=== PATIENT | male | born 1980 | race Caucasian/White ===

== ENCOUNTER 2023-08-27 22:36 | Emergency (ER) | payer MEDICARE, OTHER ==
[~2023-08-27] VITALS: Ht 175.3 cm; Wt 82.7 kg
[~2023-08-27 22:36] MED LIST: MONT-35 PO; QUET100T34 PO; QUET200T PO
[2023-08-27 22:43] VITALS: TEMP 98.2
[2023-08-27] MEDS ORDERED: IBUP-1492 PO (23:47)
[2023-08-27] MEDS ORDERED: SULF-261 PO (23:47)
[2023-08-27] MEDS ORDERED: CEPH-558 PO (23:47)
[2023-08-27] MEDS: CefTRIAXone SODIUM 1 GM/VIAL IM ONE (23:50)
[2023-08-27] MEDS: LIDOCAINE/PF 1% 2 ML VIAL IM ONE (23:51)
[2023-08-27] MEDS: SULFAMETHOX/TRIMETH DS 800-160 MG/TABLET PO ONE (23:51)
[2023-08-27] MEDS: BACITRACIN 0.9 GM PACKET OINTMENT TP ONE (23:51)
[2023-08-27] MEDS: IBUPROFEN 600 MG TABLET PO ONE (23:53)
[2023-08-28 00:30] VITALS: BP 132/79; PULSE 93; RESP 16
== END 2023-08-28 01:58 | disposition home or self-care (01) ==
LOC: EMS 23:03
DX: L03.116 Cellulitis of left lower limb (principal); L03.115 Cellulitis of right lower limb; F41.9 Anxiety disorder, unspecified; F31.9 Bipolar disorder, unspecified; F20.9 Schizophrenia, unspecified; Z88.8 Allergy status to other drugs, medicaments and biological substances; X58.XXXA Exposure to other specified factors, initial encounter; Y93.89 Activity, other specified; Y92.89 Other specified places as the place of occurrence of the external cause; Y99.8 Other external cause status
CPT/HCPCS: 99284; 96372; J0696; J3490

== ENCOUNTER 2024-06-03 07:22 | Emergency (ER) | payer MEDICARE, OTHER ==
[~2024-06-03] VITALS: Ht 175.3 cm; Wt 80.9 kg
[~2024-06-03 07:22] MED LIST changes: -ACET-66 PO; -IBUP-1554 PO; -OLAN10TA74 PO
[2024-06-03 07:32] VITALS: TEMP 98.1
[2024-06-03] MEDS: LORazepam 1 MG TABLET PO ONE (09:02)
[2024-06-03] MEDS: ACETAMINOPHEN 500 MG TABLET PO ONE (09:02)
[2024-06-03] MEDS: IBUPROFEN 600 MG TABLET PO ONE (09:02)
[2024-06-03] MEDS: OLANZapine 10 MG TABLET PO ONE (09:02)
[2024-06-03] MEDS ORDERED: OLAN10TA74 PO (09:05)
[2024-06-03] MEDS ORDERED: ACET-66 PO (09:05)
[2024-06-03] MEDS ORDERED: IBUP-1554 PO (09:05)
[2024-06-03 09:15] VITALS: BP 106/59; PULSE 75; RESP 16; O2SAT 98
== END 2024-06-03 09:32 | disposition home or self-care (01) ==
LOC: EMS 07:22
DX: F25.9 Schizoaffective disorder, unspecified (principal); F15.10 Other stimulant abuse, uncomplicated; J45.909 Unspecified asthma, uncomplicated; Z79.899 Other long term (current) drug therapy
CPT/HCPCS: 99284; Z7502; Z7610

== ENCOUNTER → 2024-06-03 | Emergency (ER) | payer MEDICARE, OTHER ==
[~2024-06-03] VITALS: Ht 175.3 cm; Wt 80.9 kg
[~2024-06-03] MED LIST changes: +ACET-66 PO; +CEPH-558 PO; +IBUP-1492 PO; +IBUP-1554 PO; +OLAN10TA74 PO; +SULF-261 PO
[2024-06-03 02:20] VITALS: BP 123/73; PULSE 76; RESP 20; TEMP 98.2; O2SAT 96
[2024-06-03 03:35] LABS: BASOPHILS % (AUTO) 0.7 % (0.0-2.0); EOSINOPHILS % (AUTO) 0 % (1.0-6.0); HEMATOCRIT 37.3 % (41-53); HEMOGLOBIN 12.6 g/dL (13.5-17.5); LYMPHOCYTES # (AUTO) 2.8 K/uL (1.0-4.8); LYMPHOCYTES % (AUTO) 40.2 % (22.0-44.0); MEAN CORPUSCULAR HEMOGLOBIN 28.6 pg (26.0-34.0); MEAN CORPUSCULAR HGB CONC 33.9 G/dL (31.0-37.0); MEAN CORPUSCULAR VOLUME 85 fL (80-100); MONOCYTES # (AUTO) 0.7 K/uL (0.1-1.0); NEUTROPHILS # (AUTO) 3.5 K/uL (1.8-7.7); NEUTROPHILS % (AUTO) 49.1 % (40.0-70.0); PLATELET COUNT (AUTO) 260 K/uL (150-450); RED BLOOD CELL COUNT(AUTO) 4.41 MIL/uL (4.50-5.90); RED CELL DISTRIBUTION WIDTH 15.5 % (11.5-14.5); WHITE BLOOD COUNT (AUTO) 7.1 K/uL (4.5-11.0)
[2024-06-03 03:48] LABS: ANION GAP 2 mmol/L (8-16); CALCIUM, TOTAL 8.2 mg/dL (8.8-10.5); CARBON DIOXIDE 29 mmol/L (22-29); CHLORIDE 104 mmol/L (98-107); CREATININE 0.76 mg/dL (0.60-1.30); GLOMERULAR FILTR. RATE CALC > 60 mL/min (>60); GLUCOSE,RANDOM 93 mg/dL (70-110); POTASSIUM 3.4 mmol/L (3.5-5.1); SODIUM SERUM 135 mmol/L (136-145); UREA NITROGEN, BLOOD 13 mg/dL (7-18)
[2024-06-03 03:50] LABS: TROPONIN I-HIGH SENSITIVITY 6 ng/L (<76)
[2024-06-03 04:02] LABS: B-TYPE NATRIURETIC PEPTIDE 19 pg/mL (0-100)
[2024-06-03 09:28] LABS: ALCOHOL, BLOOD (SERUM) < 3 mg/dL (0-10)
== END | disposition left against medical advice (07) ==
LOC: EMS 02:16
DX: R06.02 Shortness of breath (principal); Z53.21 Procedure and treatment not carried out due to patient leaving prior to being seen by health care provider
CPT/HCPCS: 93005; 80048; 83880; 84484; 85025; 36415; G0480

== ENCOUNTER 2024-10-07 14:48 | Inpatient (IN) | payer MEDICARE, OTHER ==
[~2024-10-07] VITALS: Ht 175.3 cm; Wt 81.0 kg
[~2024-10-07 14:48] MED LIST changes: +ACET-66 PO; -CEPH-558 PO; -IBUP-1492 PO; +IBUP-1554 PO; +OLAN10TA74 PO; -QUET100T34 PO; -QUET200T PO; -SULF-261 PO
[2024-10-07 14:58] VITALS: O2SAT 98
[2024-10-07 16:04] LABS: BASOPHILS % (AUTO) 0.4 % (0.0-2.0); EOSINOPHILS % (AUTO) 0 % (1.0-6.0); HEMATOCRIT 42.2 % (41-53); HEMOGLOBIN 14.2 g/dL (13.5-17.5); LYMPHOCYTES # (AUTO) 2.5 K/uL (1.0-4.8); LYMPHOCYTES % (AUTO) 47.8 % (22.0-44.0); MEAN CORPUSCULAR HEMOGLOBIN 29.1 pg (26.0-34.0); MEAN CORPUSCULAR HGB CONC 33.6 G/dL (31.0-37.0); MEAN CORPUSCULAR VOLUME 87 fL (80-100); MONOCYTES # (AUTO) 0.5 K/uL (0.1-1.0); MONOCYTES % (AUTO) 8.9 % (2.0-9.0); NEUTROPHILS # (AUTO) 2.2 K/uL (1.8-7.7); NEUTROPHILS % (AUTO) 42.9 % (40.0-70.0); PLATELET COUNT (AUTO) 278 K/uL (150-450); RED BLOOD CELL COUNT(AUTO) 4.88 MIL/uL (4.50-5.90); RED CELL DISTRIBUTION WIDTH 13.2 % (11.5-14.5); WHITE BLOOD COUNT (AUTO) 5.2 K/uL (4.5-11.0)
[2024-10-07] MEDS ORDERED: ZOLPIDEM TARTRATE 10 MG TABLET PO PRN (16:15)
[2024-10-07] MEDS ORDERED: HydrOXYzine PAMOATE 50 MG CAPSULE PO PRN (16:15)
[2024-10-07] MEDS ORDERED: LOPERAMIDE HCL 2 MG CAPSULE PO PRN (16:15)
[2024-10-07] MEDS ORDERED: ACETAMINOPHEN 325 MG TABLET PO PRN (16:15)
[2024-10-07] MEDS ORDERED: OLANZapine 5 MG RAPDIS TABLET PO PRN (16:15)
[2024-10-07] MEDS ORDERED: LORazepam 2 MG TABLET PO PRN (16:15)
[2024-10-07] MEDS ORDERED: GuaiFENesin/D-METHORPHAN [SUGAR-FREE] 200-20MG/10 ML SYRUP UDCUP PO PRN (16:15)
[2024-10-07] MEDS ORDERED: PALIPERIDONE PALMITATE 234 MG/1.5 ML SYRINGE IM ONE (16:15)
[2024-10-07] MEDS ORDERED: MAGNESIUM HYDROXIDE SUSPENSION 30 ML UDCUP PO PRN (16:15)
[2024-10-07] MEDS ORDERED: PROMETHAZINE HCL 25 MG TABLET PO PRN (16:15)
[2024-10-07] MEDS ORDERED: TUBERCULIN, PURIFIED PROTEIN DERIVATIVE 5 TU/0.1 ML SYRINGE ID ONE (16:15)
[2024-10-07] MEDS ORDERED: MAG HYDROX/ALUMINUM HYD/SIMETH ES 30 ML SUSPENSION UDCUP PO PRN (16:15)
[2024-10-07 16:20] LABS: ANION GAP 8 mmol/L (8-16); CALCIUM, TOTAL 8.5 mg/dL (8.8-10.5); CARBON DIOXIDE 30 mmol/L (22-29); CHLORIDE 103 mmol/L (98-107); CREATININE 0.72 mg/dL (0.60-1.30); GLOMERULAR FILTR. RATE CALC > 60 mL/min (>60); GLUCOSE,RANDOM 82 mg/dL (70-110); POTASSIUM 3.8 mmol/L (3.5-5.1); SODIUM SERUM 141 mmol/L (136-145); UREA NITROGEN, BLOOD 16 mg/dL (7-18)
[2024-10-07 16:21] LABS: COVID AG,FIA SOURCE NASAL SWAB
[2024-10-07 16:24] LABS: ALCOHOL, BLOOD (SERUM) < 3 mg/dL (0-10)
[2024-10-07 16:25] LABS: APPEARANCE,URINE CLEAR (CLEAR); BILIRUBIN,URINE NEGATIVE (NEGATIVE); COLOR,URINE YELLOW (YELLOW); GLUCOSE, URINE (UA) NEGATIVE (NEGATIVE); KETONES,URINE TRACE mg/dL (NEGATIVE); LEUKOCYTE ESTERASE ,URINE NEGATIVE (NEGATIVE); NITRATE,URINE NEGATIVE (NEGATIVE); OCCULT BLOOD,URINE NEGATIVE (NEGATIVE); PH,URINE 6.5 (5.0-8.0); PH,URINE DRUG SCREEN 6.5 (5.0-8.0); PROTEIN,URINE TRACE mg/dL (NEGATIVE); SPECIFIC GRAVITIY, URINE 1.035 (1.003-1.030)
[2024-10-07 16:31] LABS: AMPHET/METH SCREEN,URINE POSITIVE (NEGATIVE); BARBITURATE SCREEN, URINE NEGATIVE (NEGATIVE); BENZODIAZEPINES SCREEN,URINE NEGATIVE (NEGATIVE); CANNABINOID SCREEN,URINE NEGATIVE (NEGATIVE); COCAINE SCREEN,URINE NEGATIVE (NEGATIVE); METHADONE SCREEN, URINE NEGATIVE (NEGATIVE); OPIATE SCREEN,URINE NEGATIVE (NEGATIVE); PHENCYCLIDINE SCREEN,URINE NEGATIVE (NEGATIVE)
[2024-10-07 16:34] LABS: ALCOHOL, URINE DRUG SCREEN NEGATIVE (NEGATIVE)
[2024-10-07 16:46] LABS: SARS-COV2 (COVID) ANTIGEN,FIA Negative (Negative)
[2024-10-07] MEDS: THIAMINE 100 MG TABLET PO SCH (18:08)
[2024-10-07 18:12] VITALS: BP 136/94; PULSE 96; RESP 18; TEMP 98.1; O2SAT 98
[2024-10-07 20:13] VITALS: BP 111/65; PULSE 95; RESP 18; TEMP 98.2; O2SAT 95
[2024-10-07] MEDS: MELATONIN 5 MG TABLET PO SCH (20:32)
[2024-10-07] MEDS: TraZODone HCL 100 MG TABLET PO SCH (20:32)
[2024-10-07] MEDS: OLANZapine 5 MG RAPDIS TABLET PO SCH (20:33)
[2024-10-08 09:01] VITALS: BP 91/53; PULSE 72; RESP 19; TEMP 97.6; O2SAT 95
[2024-10-08 09:31] LABS: CHOL/HDL RATIO 2.1 (4.2-7.3); FREE T4 (FREE THYROXINE) 1.11 ng/dL (0.76-1.46); THYROID STIMULATING HORMONE 0.3 uIU/mL (0.36-3.74)
[2024-10-08] MEDS: FOLIC ACID 1 MG TABLET PO SCH (09:45)
[2024-10-08] MEDS: PALIPERIDONE 1.5 MG ER TABLET PO SCH (09:45)
[2024-10-08] MEDS: NALTREXONE HCL 50 MG TABLET PO SCH (09:45)
[2024-10-08] MEDS: MULTIVITAMINS WITH MINERALS, THERAPEUTIC TABLET PO SCH (09:46)
[2024-10-08 22:07] VITALS: RESP 18
[2024-10-09 08:00] VITALS: BP 115/79; PULSE 90; RESP 18; TEMP 98.3; O2SAT 96
[2024-10-09 10:20] VITALS: BP 115/79; PULSE 90; RESP 18; TEMP 98.3; O2SAT 96
[2024-10-09] MEDS: OLANZapine 5 MG RAPDIS TABLET PO SCH (20:52)
[2024-10-10 00:23] VITALS: BP 93/62; PULSE 94; RESP 18; TEMP 98.2; O2SAT 98
[2024-10-10 08:00] VITALS: BP 115/72; PULSE 81; RESP 18; TEMP 98.7; O2SAT 97
[2024-10-10] MEDS: BuPROPion HCL XL 150 MG ER TABLET PO SCH (09:01)
[2024-10-10 20:06] VITALS: RESP 18; TEMP 98.2
[2024-10-11] MEDS ORDERED: PALIPERIDONE PALMITATE 156 MG/ML SYRINGE IM ONE (09:00)
[2024-10-11 09:36] VITALS: RESP 18; TEMP 97.8
[2024-10-11 21:22] VITALS: RESP 18
[2024-10-12 10:21] VITALS: BP 110/65; PULSE 68; RESP 20; TEMP 98.2
[2024-10-12] MEDS: PALIPERIDONE PALMITATE 234 MG/1.5 ML SYRINGE IM ONE (10:59)
[2024-10-12] MEDS: OLANZapine 10 MG RAPDIS TABLET PO SCH (22:40)
[2024-10-12 23:00] VITALS: BP 110/65; PULSE 75; RESP 18; TEMP 97.5
[2024-10-13 08:54] VITALS: RESP 20; TEMP 98
[2024-10-13 21:07] VITALS: BP 132/78; PULSE 80; RESP 18; TEMP 98.2; O2SAT 100
[2024-10-14 10:29] VITALS: BP 91/56; PULSE 85; RESP 18; TEMP 98.1; O2SAT 97
[2024-10-14] MEDS: NICOTINE POLACRILEX 2 MG LOZENGE PO PRN (16:29)
[2024-10-14 20:21] VITALS: BP 117/75; PULSE 67; RESP 18; TEMP 98.1; O2SAT 97
[2024-10-14] MEDS ORDERED: OLAN10TA26 PO (20:45)
[2024-10-14] MEDS ORDERED: MELA5TAB40 PO (20:45)
[2024-10-14] MEDS ORDERED: BUPR-49 PO (20:45)
[2024-10-14] MEDS ORDERED: TRAZ-257 PO (20:45)
[2024-10-14] MEDS ORDERED: NALT50TA33 PO (20:45)
[2024-10-16] MEDS ORDERED: PALIPERIDONE PALMITATE 156 MG/ML SYRINGE IM ONE (09:00)
== END 2024-10-15 10:18 | disposition home or self-care (01) | DRG 885 ==
LOC: EMS 14:48 → 3EC 17:06 → 3EI 17:34
PROVIDERS: ADMIT Psychiatry & Neurology Psychiatry; ATTEND Psychiatry & Neurology Psychiatry
PROC: GZHZZZZ Group Psychotherapy (ICD-10-PCS; principal; 2024-10-07)
PROC: GZ58ZZZ Individual Psychotherapy, Cognitive-Behavioral (ICD-10-PCS; 2024-10-07)
PROC: GZ56ZZZ Individual Psychotherapy, Supportive (ICD-10-PCS; 2024-10-07)
DX: F25.0 Schizoaffective disorder, bipolar type (principal); R45.851 Suicidal ideations; F32.A Depression, unspecified; Z20.822 Contact with and (suspected) exposure to COVID-19; J44.89 Other specified chronic obstructive pulmonary disease; R45.850 Homicidal ideations; F17.200 Nicotine dependence, unspecified, uncomplicated; F41.9 Anxiety disorder, unspecified; R45.87 Impulsiveness; Z60.8 Other problems related to social environment; Z71.6 Tobacco abuse counseling; Z91.148 Patient's other noncompliance with medication regimen for other reason; Z91.199 Patient's noncompliance with other medical treatment and regimen due to unspecified reason
CPT/HCPCS: 80048; 80061; 80307; 81003; 83036; 84439; 84443; 85025; 86592; 99285; G0480